=== PATIENT | female | born 1995 | race Caucasian/White ===

== ENCOUNTER 2017-02-05 11:29 | Emergency (ER) | payer OTHER ==
[2017-02-05 11:49] VITALS: PULSE 85; RESP 16; TEMP 97.9; O2SAT 96
[2017-02-05 12:04] VITALS: BP 121/73
--- NOTE | 2017-02-05 13:01 | UCPHY ---
H & P Time Seen by Provider: 02/05/17 12:27 Patient Type: Established HPI/ROS: Chief complaint: cough, fever, body aches. Influenza exposure HPI: this is a 19-year-old female who has been visiting with her cousin. They tend to hang out a lot. Evidently the covers and has been ill with an influenza like illness as indeed ruled in for influenza. Unfortunately, Miss Sanchez has become ill herself as a 5:00 a.m. this morning when she woke up with body aches, headache, fevers and dry cough. She has had no shaking chills or rigors. There has been no sinus pain ROS: Constitutional - no fevers or chills. Eyes - no discharge, or injection ENT - no earache, change in hearing, difficulty swallowing, sore throat. Respiratory - No Shortness of breath, phlegm, wheezing or pleuritic chest pain. The cough is dry Musculoskeletal - no joint or muscle pain. Integument - no rashes. Neurological - no headache, numbness, tingling, or paresthesias. No focal motor weakness. Immunological - no swelling or lymphadenopathy 10 point ROS otherwise negative Smoking Status: Never smoked Physical Exam: Gen: Well developed, well nourished. Nontoxic. HEENT: Normocephalic. Ears: TMs are clear. Hearing normal. Eyes: PERRL. No conjunctival injection or pallor. no jaundice. Nose: No nasal discharge. Throat: Membranes are moist. Oropharynx is without erythema or exudate. Normal phonation. Lungs: Good air entry into both lungs. No rales rhonchi or wheezes. No air hunger. No respiratory distress. Skin: Good color, without pallor. There is no diaphoresis. Skin is warm and dry , without diaphoresis. Intact without rashes Constitutional: Initial Vital Signs Temperature (C) 36.6 C 02/05/17 11:47 Heart Rate 85 02/05/17 11:47 Respiratory Rate 16 02/05/17 11:47 Blood Pressure 121/73 H 02/05/17 11:47 O2 Sat (%) 96 02/05/17 11:47 O2 Delivery Mode Room Air Allergies/Adverse Reactions: ibuprofen Allergy (Verified 02/05/17 11:46) Home Medications: Medication Instructions Recorded Etonogestrel [Nexplanon] 68 mg SQ 02/12/13 Medical Decision Making ED Course/Re-evaluation: Nasal swab tested positive for influenza B. case reviewed with patient at length. I offered her but did not necessarily recommend Tamiflu given the lack of evidence to suggest that it works well. Given the cost and the minimal benefit she has declined. Differential Diagnosis: Diagnostic considerations include, but are not limited to, the following: URI, sinusitis, pharyngitis, otitis media, pneumonia, allergy, influenza. - Data Points Laboratory Results: 02/05/17 02/05/17 02/05/17 Unknown 11:55 11:55 Influenza Typ A,B (DFA) POSITIVE FOR FLU B H (NEGATIVE) Group A Strep Screen NEGATIVE (NEGATIVE) Group A Strep DNA Pending Departure - Departure Disposition: Home, Routine, Self-Care Clinical Impression: Influenza B Condition: Good Instructions: Influenza (ED) Additional Instructions: Use Delsym for tsp twice daily for the cough if it is causing you pain in the ribs or that she cannot sleep your contagious. Home to rest. Referrals: [facility] [Other] - As per Instructions Stand Alone Forms: Work Excuse - PQRS PQRS Measurement: Not applicable
== END 2017-02-05 13:09 | disposition home or self-care (01) ==
LOC: CED 11:29
DX: J10.1 Influenza due to other identified influenza virus with other respiratory manifestations (principal)
CPT/HCPCS: 87400-PO; 87880-PO; 99214-PO; G0463-PO

== ENCOUNTER 2017-04-20 08:05 | Emergency (ER) | payer OTHER ==
[2017-04-20] MEDS ORDERED: ACETAMINOPHEN 500 MG TAB ONE (08:40)
[2017-04-20 10:13] VITALS: BP 114/95; PULSE 76; RESP 18; TEMP 98; O2SAT 97
[2017-04-20] MEDS ORDERED: ACETAMINOPHEN 325 MG TAB PO ONE (10:15)
--- NOTE | 2017-04-20 11:59 | EDV ---
[f rep st] EMERGENCY DEPARTMENT REPORT DATE OF SERVICE: 04/20/2017 CHIEF COMPLAINT: Sore throat, myalgias, fever. HISTORY OF PRESENT ILLNESS: The patient is a generally healthy college student who presents with 2 days of sore throat. Last night, she had a temperature of 100 degrees. She reports that she is mark rse today and has developed diffuse myalgias. She has had some nausea, but no vomiting. She denies abdominal pain, diarrhea, or urinary symptoms. She has not had cough, and does not feel short of b reath. She did not have a flu immunization this year, but reports that she was diagnosed with flu i n February. She is concerned that she might have strep throat. REVIEW OF SYSTEMS: 10-point review of systems performed and negative with the exceptions reported i n the history of present illness. PAST MEDICAL HISTORY: Negative. PAST SURGICAL HISTORY: Negative. SOCIAL HISTORY: She does not use tobacco products. She drinks alcohol socially. 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 PRIMARY CARE PHYSICIAN: Lakisha Weems, family practice at [facility]. PHYSICAL EXAMINATION: GENERAL: Well-nourished, well-developed female, in no acute distress. VITAL SIGNS: Reviewed. HEENT: Oropharynx with moderate erythema and some swelling. No exudates or ulc ers. Oral mucosa is moist. She is managing her secretions easily. Tympanic membranes and external auditory canals are clear bilaterally. NECK: Positive anterior cervical lymphadenopathy. No post erior adenopathy. LUNGS: Clear to auscultation. HEART: Regular rate and rhythm without murmur. ABDOMEN: Soft, nontender, nondistended, with normal bowel sounds. No organomegaly. SKIN: Warm an d dry. Normal color. NEURO: Awake and alert, moving all 4 extremities easily and equally. BACK: No CVA tenderness. EXTREMITIES: No calf swelling or tenderness. PSYCH: Normal affect. EMERGENCY DEPARTMENT COURSE: Influenza and rapid strep testing are both negative. This is likely a viral syndrome/viral pharyngitis. I discussed the lab reports with the patient. She understands t hat antibiotics will not be helpful in this setting. We discussed symptomatic treatment with Tyleno l and ibuprofen. We also discussed [id number] measures for the pain of sore throat. Danger s igns that should prompt her to be reevaluated were reviewed. I consider a differential diagnosis that includes, but is not limited to, viral and bacterial pharyn gitis, influenza, retropharyngeal abscess, , and upper respiratory infection. CLINICAL IMPRESSION: Viral pharyngitis. DISPOSITION: Discharge is to home in stable condition. PLAN: She will follow up with her primary care provider if not improved over the next 2-3 days. Yosvany portillo will return to the emergency department for any worsening. /[id number]/MODL
== END 2017-04-20 10:17 | disposition home or self-care (01) ==
LOC: CED 10:04
DX: J02.8 Acute pharyngitis due to other specified organisms (principal); B97.89 Other viral agents as the cause of diseases classified elsewhere
CPT/HCPCS: 87400-PO; 87880-PO